=== PATIENT | male | born 1950 | race Two or more races ===

== ENCOUNTER 2018-08-01 23:23 | Emergency (ER) | payer SELFPAY ==
[2018-08-01] MEDS ORDERED: EPINEPHrine HCL 1 MG/10 ML SYRG IV ONE ×2 (23:30)
== END 2018-08-01 23:29 | disposition expired ==
LOC: EDBD 23:23 → ER 23:29
DX: I46.9 Cardiac arrest, cause unspecified (principal)
CPT/HCPCS: 92950; 99285; J0171